=== PATIENT | female | born 1945 | race Caucasian/White ===

== ENCOUNTER 2021-12-16 07:40 | Outpatient (CLI) | payer MEDICARE ==
[2021-12-16] MEDS ORDERED: Iopamidol 370 76% 100 ML VIAL ONE (13:02)
== END 2021-12-16 07:41 | disposition home or self-care (01) ==
LOC: CT 07:40
PROVIDERS: ATTEND Student in an Organized Health Care Education/Training Program
DX: M79.12 Myalgia of auxiliary muscles, head and neck (principal); M50.322 Other cervical disc degeneration at C5-C6 level; M25.78 Osteophyte, vertebrae
CPT/HCPCS: 70491; 82565; Q9967